=== PATIENT | female | born 1980 | race Caucasian/White ===

== ENCOUNTER 2023-03-25 08:39 | Emergency (ER) | payer BC, SELFPAY ==
[2023-03-25 08:42] VITALS: BP 144/81; PULSE 90; RESP 18; TEMP 36.8; O2SAT 100
[2023-03-25 08:53] LABS: Glucose Point of Care 314 mg/dl (65-105)
--- NOTE | 2023-03-25 09:27 | ED.GENADULT ---
HPI - General Adult General Chief complaint: Recheck/Abnormal Lab/Rx Stated complaint: insulin pump failed Time Seen by Provider: 03/25/23 08:44 History of Present Illness HPI narrative: Patient is a 42-year-old female who presents ER for evaluation for hyperglycemia. She feels little lightheaded and anxious. She right from [facility] yesterday and her Omnipod failed. She tried to replace it with a new one but that on the apod failed this morning as well. She has no additional supplies. She is going back home today. No nausea or vomiting. No chest pain or shortness of breath. Related Data Allergies Allergy/AdvReac Type Severity Reaction Status Date / Time Penicillins Allergy Fatigued Verified 03/25/23 08:41 Review of Systems Constitutional: Constitutional: Reports no additional constitutional complaints ENT: Reports system reviewed and no additional complaints, except as documented and Reports dizziness Cardiovascular: Cardiovascular: Reports no additional cardiovascular complaints Respiratory: Respiratory: Reports no additional respiratory complaints Gastrointestinal: Gastrointestinal: Reports no additional gastrointestinal complaints PMFSH Past Medical History Medical History (Updated 03/25/23 @ 10:53 by Martin Lazo MD) Feliz's thyroiditis Type 1 diabetes Exam Narrative: GENERAL: Well-appearing, well-nourished, and in no acute distress. HEAD: Normocephalic, atraumatic. ENT: Mucous membranes moist. CHEST: Clear to auscultation. No respiratory distress. HEART: Regular rate and rhythm. Normal peripheral pulses. EXTREMITIES: Normal range of motion. No edema. NEURO: Alert and oriented x3. PSYCH: Normal mood and affect. Course Course Emergency Course: Patient will be discharged with a long-acting and short-acting insulin pen. She feels comfortable using them. Discharge. Ketones, no gap. Vital Signs Vital signs: Vital Signs Temperature 98.3 F 03/25/23 08:42 Pulse Rate 90 03/25/23 08:42 Respiratory Rate 18 03/25/23 08:42 Blood Pressure 144/81 H 03/25/23 08:42 Pulse Oximetry 100 03/25/23 08:42 Oxygen Delivery Room Air 03/25/23 08:42 Temperature 98.3 F 03/25/23 08:42 Pulse Rate 90 03/25/23 08:42 Respiratory Rate 18 03/25/23 08:42 Blood Pressure 144/81 H 03/25/23 08:42 Pulse Oximetry 100 03/25/23 08:42 Oxygen Delivery Room Air 03/25/23 08:42 Medical Decision Making Vital Signs Vital Signs: Vital Signs Temperature 98.3 F 03/25/23 08:42 Pulse Rate 90 03/25/23 08:42 Respiratory Rate 18 03/25/23 08:42 Blood Pressure 144/81 H 03/25/23 08:42 Pulse Oximetry 100 03/25/23 08:42 Oxygen Delivery Room Air 03/25/23 08:42 Temperature 98.3 F 03/25/23 08:42 Pulse Rate 90 03/25/23 08:42 Respiratory Rate 18 03/25/23 08:42 Blood Pressure 144/81 H 03/25/23 08:42 Pulse Oximetry 100 03/25/23 08:42 Oxygen Delivery Room Air 03/25/23 08:42 Lab Data 03/25/23 09:34 03/25/23 09:34 Labs: Lab Results 03/25/23 03/25/23 03/25/23 Range/Units 08:51 09:26 09:34 WBC 8.6 (4.5-10.0) K/mm3 RBC 3.67 L (4.2-5.4) M/mm3 Hgb 11.8 L (12.0-15.0) g/dL Hct 36.2 L (37.0-47.0) % MCV 98.6 (80-100) fl MCH 32.2 (26-34) pg MCHC 32.6 (32-36) g/dl RDW 11.8 (11.5-14.5) % Plt Count 286 (150-375) k/mm3 MPV 9.2 (7.4-10.4) fl Immature Gran % (Auto) 0.2 (0-0.5) % Neut % (Auto) 80.0 H (45.5-73.1) % Lymph % (Auto) 12.5 L (18.3-44.2) % Zavala % (Auto) 5.0 (2.6-8.5) % Eos % (Auto) 0.8 (0-4.4) % Baso % (Auto) 1.5 H (0.2-1.2) % Lymph # (Auto) 1.08 (0.9-3.2) K/mm3 Zavala # (Auto) 0.4 (0.1-0.6) K/mm3 Eos # (Auto) 0.1 (0-0.3) K/mm3 Baso # (Auto) 0.1 (0.0-0.1) K/mm3 Abs Immat Gran (auto) 0.02 (0.00-0.031) K/mm3 Absolute Neuts (auto) 6.9 H (1.3-6.7) K/mm3 Absolute Nucleated RBC 0.0 (0.0-0
[2023-03-25] MEDS: SODIUM CHLORIDE 0.9% IV 1,000 ML 999 ML IV CONT (09:34)
[2023-03-25] MEDS: INSULIN HUMAN REGULAR (*BKC) 100 UNITS/ML IV PUSH (09:34)
[2023-03-25 09:49] LABS: Basophils Absolute Auto 0.1 K/mm3 (0.0-0.1); Basophils Percent Auto 1.5 % (0.2-1.2); Eosinophils Absolute Auto 0.1 K/mm3 (0-0.3); Eosinophils Percent Auto 0.8 % (0-4.4); Hematocrit 36.2 % (37.0-47.0); Hemoglobin 11.8 g/dL (12.0-15.0); Immature Granulocyte Absolute 0.02 K/mm3 (0.00-0.031); Immature Granulocyte Percent A 0.2 % (0-0.5); Lymphocytes Absolute Auto 1.08 K/mm3 (0.9-3.2); Lymphocytes Percent Auto 12.5 % (18.3-44.2); Mean Corpuscular HGB Conc 32.6 g/dl (32-36); Mean Corpuscular Hemoglobin 32.2 pg (26-34); Mean Corpuscular Volume 98.6 fl (80-100); Mean Platelet Volume 9.2 fl (7.4-10.4); Monocytes Absolute Auto 0.4 K/mm3 (0.1-0.6); Neutrophils Absolute Auto 6.9 K/mm3 (1.3-6.7); Platelet Count Result 286 k/mm3 (150-375); Red Blood Count 3.67 M/mm3 (4.2-5.4); Red Cell Distribution Width 11.8 % (11.5-14.5); White Blood Count 8.6 K/mm3 (4.5-10.0)
[2023-03-25 09:51] LABS: Appearance Urine Clear (Clear); Bilirubin Urine Negative (Negative); Blood Urine Negative (Negative); Color Urine Yellow (Yellow); Glucose Urine UA 3+ mg/dL (Negative); Ketones Urine 2+ mg/dL (Negative); Leukocyte Esterase Ur Negative LEU/UL (Negative); Nitrate Urine Negative (Negative); Protein Urine Negative (Negative); Specific Grav Ur 1.016 (1.001-1.035); Urobilinogen Urine 0.2 mg/dL (<2.0); pH Urine 5.5 (5.0-9.0)
[2023-03-25 09:52] LABS: Add Urine Microscopic? NO
[2023-03-25 09:58] LABS: Anion Gap 8 mmol/L (8-16); Blood Urea Nitrogen 15 mg/dL (7-17); Calcium 8.9 mg/dL (8.4-10.2); Carbon Dioxide 23 mmol/L (22-30); Chloride 102 mmol/L (98-107); Estimated Glomerular Filt Rate > 60; Glucose 282 mg/dL (65-110); Potassium 4.6 mmol/L (3.4-5.0); Sodium 133 mmol/L (137-145)
[2023-03-25 10:24] LABS: Glucose Point of Care 176 mg/dl (65-105)
== END 2023-03-25 11:28 | disposition home or self-care (01) ==
PROVIDERS: Emergency Provider Emergency Medicine
DX: E10.65 Type 1 diabetes mellitus with hyperglycemia (principal); E06.3 Autoimmune thyroiditis; Z79.4 Long term (current) use of insulin; Z96.41 Presence of insulin pump (external) (internal)
CPT/HCPCS: 36415; 80048; 81003; 82948; 85025; 96361; 96374; 99284; J1815; J7030